=== PATIENT | female | born 1950 | race Caucasian/White ===

== ENCOUNTER 2016-11-06 17:39 | Emergency (ER) | payer MEDICARE, OTHER ==
--- NOTE | ~2016-11-06 | CR72 ---
[facility]. [facility] A Service of [facility] & [facility] RADIOLOGY TEXT RESULTS PATIENT: PRERNA CAMERON I LOCATION: SED : 48 UNIT #: [id number] AGE: [address]: Handy Pearl MD SEX: F ORDER DR: [id number] [place] [id number] E MR#: [id number] Acc #: [id number] NAME: PRERNA CAMERON I. : 1950 SEX: F STUDY DATE/TIME: 11/06/2016 18:29 UNIT: SED ROOM: STUDY DESCRIPTION: CR Chest Single View Portable Attending Physician: Handy Pearl M.D. Ordering Physician: Handy Pearl M.D. Primary Care Physician: Andrew Sky M.D. MEDICAL IMAGING REPORT This report is preliminary unless electronic signature is present. EXAM Single view chest INDICATIONS Shortness of air for 1 day. Lip numbness. Positive smoking history. FINDINGS Single portable AP view of the chest compared to 04/30/2015. The heart and mediastinal contours are within normal limits. No focal airspace opacity. No pneumothorax or pleural effusion. IMPRESSION No acute cardiopulmonary findings. Dictated by... Connor Astudillo M.D. THIS IS AN ELECTRONICALLY VERIFIED REPORT Connor Astudillo M.D. at 11/07/2016 3:10 PM C/karen TD: 11/06/2016 21:38 JOB #: [id number] MEDICAL IMAGING REPORT Page 1 of 1
--- NOTE | ~2016-11-06 | EKG ---
PATIENT: PRERNA CAMERON UNIT #: [id number] Ventricular Rate: 82 BPM Atrial Rate: 82 BPM P-R Interval: 160 ms QRS Duration: 106 ms Q-T Interval: 366 ms QTC Calculation(Bezet): 427 ms P [place]: 52 degrees Calculated R [place]: -62 degrees Calculated T [place]: 62 degrees Diagnosis Line: Normal sinus rhythm with sinus arrhythmia Diagnosis Line: Incomplete right bundle branch block Diagnosis Line: Left anterior fascicular block Diagnosis Line: Minimal voltage criteria for LVH, may be normal Diagnosis Line: variant Diagnosis Line: Abnormal ECG Diagnosis Line: When compared with ECG of 30-DEC-2009 15:00, Diagnosis Line: No significant change was found Diagnosis Line: Confirmed by JOSE A BUSTILLOS MD ([id number]) on Diagnosis Line: 11/15/2016 3:16:51 PM INTERPRETING MD: ALEXA
[~2016-11-06 17:39] MED LIST: AMITRIPTYLINE H25 MG PO; AMITRYPTYLINE PO; ASPIRIN81 M1; ASPIRINEC PO; AVANDIA PO; BENZONATATE PO; CLONIDINE PO; DARVOCET-N 1001 TA1 PO; FENOFIBRATE160 MG PO; GLUCOTROL PO; GLUCOVANCE 5/501 TA1 PO; GLUCOVANCE PO; HUMALOG100 U/ML SQ; HUMULIN R100 U/ML SUBQ; LASIX20 MG PO; LEVAQUIN750 MG PO; LEVEMIR SQ; LIPITOR40 MG PO; LISINOPRIL PO; LOPID600 MG PO; LOPRESSOR PO; LORTAB 10/500 T1 TAB PO; METFORMIN HCL500 M1 PO; METFORMIN PO; NIACIN PO; PHENERGAN25 MG PO; PRAVACHOL PO; REGLAN10 MG PO; TOPIRAMATE100 MG PO; TOPROL XL PO; ZESTORETIC 20/11 TA1 PO; ZESTORETIC 20/11 TAB PO
[2016-11-06 18:07] LABS: BASOPHIL# 0.1 X10e3 (0-0.3); BASOPHIL% 1.1 % (0-2.5); DIFF IND NO; EOSINOPHIL# 0.2 X10e3 (0-0.7); EOSINOPHIL% 3.1 % (0.0-7.0); HEMATOCRIT 39.6 % (35.0-45.0); HEMOGLOBIN 13.6 gm/dL (12.0-16.0); INR 1.1; MEAN CELL VOLUME 87.5 FL (83-96); MEAN CORPUSCULAR HEMOGLOBIN 30.1 PG (28-34); MEAN CORPUSCULAR HGB CONC 34.4 g/dL (30-36); MEAN PLATELET VOLUME 8.9 FL (6.5-11.5); MONOCYTE# 0.8 X10e3 (0-1.0); NEUTROPHIL# 4.3 X10e3 (1.5-7.1); NEUTROPHIL% 57.8 % (40-75); PLATELET COUNT 191 X10e3 (140-420); RED BLOOD COUNT 4.53 X10e (3.90-5.30); RED CELL DISTRIBUTION WIDTH 14.5 % (11.0-15.5); WHITE BLOOD COUNT 7.5 X10e3 (4.0-10.5)
[2016-11-06 18:12] LABS: POC - CKMB 2.8 ng/mL (0.0-7.9); POC - TROPONIN <0.05 ng/mL (<=0.05)
[2016-11-06 18:14] LABS: PARTIAL THROMBOPLASTIN TIME 27.8 SECONDS (25.6-38.1)
[2016-11-06 18:16] LABS: ALBUMIN SERUM 3.6 g/dL (3.5-5.0); ALKALINE PHOSPHATASE 150 U/L (32-92); ALT (SGPT) 42 U/L (10-40); AST (SGOT) 60 U/L (10-42); BILIRUBIN,TOTAL 0.5 mg/dL (0.2-2.0); BLOOD UREA NITROGEN 14 mg/dL (9-23); CALCIUM SERUM 9.7 mg/dL (8.4-10.2); CARBON DIOXIDE 26 mmol/L (22-31); CHLORIDE 103 mmol/L (100-111); CREATININE SERUM 0.7 mg/dL (0.6-1.4); GLOM FILT RATE Estimated 89.7 mL/min (>60); GLUCOSE FASTING 160 mg/dL (70-110); POTASSIUM 3.7 mmol/L (3.5-5.1); PROTEIN TOTAL SERUM 7.4 g/dL (6.0-8.3); SODIUM 138 mmol/L (135-145)
[2016-11-06 18:20] LABS: BILIRUBIN, DIRECT <0.1 mg/dL (0.0-0.2); BILIRUBIN,INDIRECT 0.4 mg/dL (0.0-0.9)
[2016-11-06 18:37] LABS: URINE SOURCE CLEAN CATCH
[2016-11-06 18:41] LABS: URINE APPEARANCE CLEAR; URINE BILIRUBIN NEG (NEG); URINE BLOOD TRACE-LYSED (NEG); URINE COLOR YELLOW; URINE GLUCOSE NEG (NORM); URINE KETONE NEG (NEG); URINE LEUKOCYTE ESTERASE NEG (NEG); URINE NITRATE NEG (NEG); URINE PROTEIN 1+ (NEG); URINE UROBILINOGEN 0.2 MG/DL (NORM)
[2016-11-06 18:43] LABS: MICRO INDICATED? YES
[2016-11-06 18:45] LABS: URINE RBC 0-2 /[HPF] (0-2)
[2016-11-06 18:46] LABS: CULTURE INDICATED? YES; URINE BACTERIA 1+ (NEG); URINE SQUAMOUS EPITHELIAL CELL MANY /[HPF]
[2016-11-15] MEDS ORDERED: BACTRIM DS TAB1 EACH PO (17:06)
== END 2016-11-06 19:18 | disposition home or self-care (01) ==
LOC: SED 17:39
PROVIDERS: Emergency Medicine
DX: R06.02 Shortness of breath (principal); R07.89 Other chest pain; I10 Essential (primary) hypertension; Z88.5 Allergy status to narcotic agent; Z79.899 Other long term (current) drug therapy
CPT/HCPCS: 71010; 80048; 80076; 81003; 82553; 82947; 83880; 84484; 85025; 85610; 85730; 87086; 87088; 87186; 93005; 94640; 99285